=== PATIENT | male | born 2000 | race Caucasian/White ===

== ENCOUNTER → 2020-09-11 | Outpatient (CLI) | payer BC, SELFPAY ==
[2020-09-11 20:02] LABS: Internal QC Validated? YES +Cl - CLEAR BKGD; Monotest POSITIVE (Negative)
== END | disposition home or self-care (01) ==
PROVIDERS: Visit Provider Nurse Practitioner Family
DX: J02.9 Acute pharyngitis, unspecified (principal)
CPT/HCPCS: 86308

== ENCOUNTER 2021-02-27 10:38 | Outpatient (RCR) | payer BC, SELFPAY | END 2021-04-03 23:59 | LOC: IMMUN 10:38 | PROVIDERS: Visit Provider Family Medicine | DX: Z23 Encounter for immunization (principal) | CPT/HCPCS: 0001A; 0002A; 91300 ==

== ENCOUNTER 2023-01-17 15:20 | Emergency (ER) | payer BC, SELFPAY ==
[2023-01-17 15:20] VITALS: BP 138/67; PULSE 60; RESP 16; TEMP 36.3; O2SAT 99; BMI 27.0
--- NOTE | 2023-01-17 15:26 | CT_ITS ---
EXAM: CT ABDOMEN AND PELVIS WITHOUT INTRAVENOUS CONTRAST CLINICAL INDICATION: Kidney Stone TECHNIQUE: Helically acquired images were obtained of the abdomen and pelvis without intravenous contrast. This CT exam was performed using one or more of the following dose reduction techniques: automated exposure control, adjustment of the mA and/or kV according to patient size, and/or use of iterative reconstruction technique. This report was created using [employer] report generation technology. RADIATION DOSE: Total DLP: 377.06 mGy-cm. COMPARISON: None. FINDINGS: LOWER THORAX: The visualized lung bases are clear. No coronary artery calcification is visualized. No significant pericardial effusion. Urinary bladder is nearly empty. ABDOMEN: LIVER: Unremarkable. Homogeneous. GALLBLADDER AND BILE DUCTS: Unremarkable. No calcified gallstones. No gallbladder distention or wall edema. No intra- or extrahepatic biliary ductal dilation. PANCREAS: Unremarkable. No focal cystic mass. SPLEEN: Unremarkable. Normal size without focal cystic or solid mass. ADRENALS: Unremarkable. No nodules. KIDNEYS AND URETERS: The kidneys are normal in size and shape. There is minimal dilatation of the left intrarenal collecting system and left ureter as compared to the right. A punctate calcification measuring under 1 mm in diameter is seen within the distal left ureter in the region of the UVJ, best visualized on coronal image 73 of series 601 and parasagittal image 82 of series 602. No other renal or ureteral stones are identified. The right kidney is unremarkable STOMACH AND BOWEL: Unremarkable. No stomach or bowel distention. No focal inflammatory change. PELVIS: APPENDIX: Normal. No evidence of acute appendicitis. BLADDER: Nearly empty. REPRODUCTIVE: Unremarkable as visualized. No mass. ABDOMEN and PELVIS: INTRAPERITONEAL SPACE: Unremarkable. No ascites or other fluid collection. No free air. BONES/JOINTS: Unremarkable. No suspicious lytic or blastic abnormality. SOFT TISSUES: Unremarkable. No discrete abdominal or pelvic wall hernia. VASCULATURE: Normal caliber abdominal aorta. LYMPH NODES: Unremarkable. No enlarged lymph nodes. CT/Abdomen/Pelvis without Cont IMPRESSION: Minimal left hydronephrosis and hydroureter due to a punctate stone within the distal ureter at the UVJ. Electronically Signed: Ilia Camacho MD at 16:53 EDT ,
--- NOTE | 2023-01-17 15:26 | EX.ED.DYSGE1 ---
HPI History of Present Illness Chief Complaint: Flank Pain Detail of Chief Complaint: Left flank pain Informant: patient Onset/Context/Timing Onset: Today Context: Sudden Onset Current Severity: Moderate Maximum Severity: Severe Narrative Narrative: Patient presents secondary to left flank pain. He states he was sitting at his desk after work when he developed sudden pain in his left mid back muscles. Started wrapping around his abdomen. He states he feels the urge to urinate but cannot go. He got sweaty and lightheaded and had dry heaves. He states he felt well this morning. He denies any personal or family history of kidney stones. PFSH PFSH Medical History no medical history no medical history Home Medications hydrocodone-acetaminophen 5-325mg 5mg-325mg 1 tab PO Q6H PRN PRN Pain 3 days #10 TABLETS 01/17/23 [Rx Last Taken Unknown] ibuprofen 600 mg tablet 600 mg PO Q6H PRN PRN pain #20 TABLETS 01/17/23 [Rx Last Taken Unknown] ondansetron 4 mg disintegrating tablet 4 mg PO Q8H PRN PRN Nausea #10 tabs 01/17/23 [Rx Last Taken Unknown] Allergy/AdvReac Type Severity Reaction Status Date / Time Sulfa (Sulfonamide Allergy Other Verified 01/17/23 15:22 Antibiotics) Social History Smoking Status: Never smoker ROS ROS ED Constitutional Constitutional ED: Denies chills or fever(s) Eyes Eyes: Denies change in vision or discharge from eye(s) ENT ENT ED: Denies discharge from eye(s), rhinorrhea or sore throat Cardiovascular Cardiovascular: Denies chest pain or palpitations Respiratory/Chest Respiratory/Chest: Denies cough or dyspnea Gastrointestinal Gastrointestinal: Reports abdominal pain and nausea; Denies diarrhea or vomiting Genitourinary Genitourinary ED: Reports difficulty urinating; Denies dysuria Musculoskeletal Musculoskeletal: Reports back pain; Denies extremity pain Integumentary Denies Abrasions or rash Neurologic Neurologic: Denies headache(s) or weakness Psychiatric Psychiatric: Denies anxiety or depression Allergic/Immunologic Allergic/Immunologic ED: Denies lip swelling or urticaria EXAM Physical Exam Const Vital Signs: 01/17/23 15:20 Temperature 97.4 F L Temperature Source Temporal Pulse Rate 60 Respiratory Rate 16 Blood Pressure 138/67 H Blood Pressure Mean 90 Pulse Ox 99 Oxygen Delivery Method Room Air Positive well nourished and well developed General Appearance ED: well developed HEENT Reports normocephalic and head/scalp atraumatic Eyes PERRL and EOMs intact bilaterally Neck supple Chest Wall inspection of chest normal and palpation of chest normal Resp normal respiratory effort and clear to auscultation bilaterally Cardio regular rate and regular rhythm GI non-tender Auscultation: hypoactive bowel sounds Palpation: soft Extremity normal to inspection Neuro oriented x3 and no sensory deficits noted Sensorium / Orientation: alert Motor Exam: strength 5/5 throughout Psych mental status grossly normal Skin no rashes or lesions noted MDM MDM MDM Narrative Medical decision making narrative: IV line established. Patient given morphine, Toradol, Zofran, IV fluids. Lab work obtained along with urinalysis to evaluate for electrolyte abnormality or urinary infection. CT flank obtained given suspicion of kidney stone. Lab Data Attestation: I reviewed the patient's lab results. Labs: Laboratory Results - last 24 hr 01/17/23 01/17/23 01/17/23 15:30 15:30 16:48 WBC 6.6 RBC 4.85 Hgb 15.6 Hct 43.7 MCV 90.1 MCH 32.2 H MCHC 35.7 RDW Std Deviation 38.7 RDW Coeff of [place] 11.9 Plt Count 254 MPV 9.8 Immature Gran % (Auto) 0.800 Neut % (Auto) 44.4 L Lymph % (Auto) 40.7 [place] % (Auto) 11.0 H Eos % (Auto) 2.3 Baso % (Auto) 0.8 Absolute Neuts (auto) 2.9 Absolute Lymphs (auto) 2.69 Nucleated RBC % 0 Differential Comment SCANNED Sodium 140 Potassium 3.3 L Chloride 105 Carbon Dioxide 27.0 Anion Gap 8 BUN 18 Creatinine 1.36 H Estim Creat Clear Calc 94.65 Est GFR (MDRD) Af Amer 82 Est GFR (MDRD) Non-Af 68 BUN/Creatinine Ratio 13.2 Glucose 107 H Calcium 9.4 Urine Color Yellow Urine Clarity Sl. Cloudy Urine pH 6.5 Ur Specific [place] 1.020 Urine Protein 30 H Urine Glucose (UA) Normal Urine Ketones 5 H Urine Occult Blood 25 H Urine Nitrite Negative Urine Bilirubin Negative Urine Urobilinogen 1 H Ur Leukocyte Esterase 25 H Urine RBC 0-5 SEEN Urine WBC 0-5 SEEN Ur Squamous Epith Cells 0 SEEN Urine Bacteria 0 SEEN Urine Mucus 0 SEEN Radiography Diagnostic Testing: Clinical Impression(s) from Imaging Studies Abdomen/Pelvis CT 01/17/23 15:26 IMPRESSION: Minimal left hydronephrosis and hydroureter due to a punctate stone within the distal ureter at the UVJ. Electronically Signed: Ilia Camacho MD at 16:53 EDT , Treatment and Re-Evaluation :: CBC unremarkable. Chemistry studies reveal a slightly low potassium at 3.3 and a creatinine of 1.36. I have no prior values to compare to. Urinalysis reveals 0-5 RBCs and 0-5 white cells. Only [address] flank reveals a punctate stone at the left UVJ with minimal hydronephrosis. On repeat evaluation patient's pain is significantly improved. Test results are discussed with him and significant other at bedside. We will treat him with analgesics and antiemetics. He will be referred to urology as needed. Discharge Plan Triage Chief Complaint: Flank Pain ED Provider: Martina Kumari Dx/Rx/DC Orders Clinical Impression: Kidney stone Instructions: ED Kidney Stone w/ Colic Prescriptions: New ibuprofen 600 mg tablet 600 mg PO Q6H PRN PRN (Reason: pain) Qty: 20 0RF hydrocodone-acetaminophen 5-325 mg tablet 1 tab PO Q6H PRN PRN (Reason: Pain) 3 Days Qty: 10 0RF ondansetron 4 mg tablet,disintegrating 4 mg PO Q8H PRN PRN (Reason: Nausea) Qty: 10 0RF Primary Care Provider: Care Physician,No Primary Referrals: Chandana Alvarado MD [Med Staff - Active Staff] - As Needed NOT,DEFINED [Non-Staff] - Disposition Disposition: Home, Self Care
[2023-01-17] MEDS: Morphine 4 MG/ML Syringe IV (15:33)
[2023-01-17] MEDS: Ketorolac 30 MG/ML Syringe IV (15:33)
[2023-01-17] MEDS: Ondansetron 4 MG/2 ML Vial IV (15:33)
[2023-01-17] MEDS: 0.9% Normal Saline 1,000 ML 250 ML IV (15:37)
[2023-01-17 16:01] LABS: Anion Gap 8 (5-15); BUN 18 mg/dL (7-18); BUN/Creat Ratio 13.2 RATIO (10-20); Calcium,Total 9.4 mg/dL (8.5-10.1); Chloride 105 mmol/L (98-107); Creatinine, Serum 1.36 mg/dL (0.70-1.30); EST Glomerular Filtration Rate 68 mL/min (>60); Est Glom Filt Rate - Afr Amer 82 mL/min (>60); Estimated Creatinine Clearance 94.65 ml/min; Glucose 107 mg/dL (74-106); Potassium 3.3 mmol/L (3.5-5.1); Sodium Level 140 mmol/L (136-145)
[2023-01-17 16:02] LABS: Absolute Lymphocyte Count 2.69 X10^3/uL (0.83-4.51); Absolute Neutrophil Count 2.9 X10^3/uL (2.0-7.7); Basophil# 0.05 X10^3/uL; Basophil% 0.8 % (0-1); Eosinophil# 0.15 X10^3/uL; Eosinophils% 2.3 % (0-5); Hematocrit 43.7 % (40-54); Hemoglobin 15.6 g/dL (13.0-16.5); Lymphocyte # 2.69 X10^3/ul (0.83-4.51); Lymphocyte % 40.7 % (19-41); Mean Corp Hgb Conc 35.7 g/dL (32-36); Mean Corpuscular Hgb 32.2 pg (27.0-32.0); Mean Corpuscular Volume 90.1 fL (80-94); Mean Platelet Vol. 9.8 fl (6.2-12.0); Monocyte# 0.73 X10^3/uL; NRBC Flagged by Analyzer 0 % (0-5); Neutrophil # 2.94 X10^3/uL (2.7-7.7); Neutrophil % 44.4 % (47-70); POSITIVE MORPHOLOGY YES; Platelet Count 254 K/mm3 (150-450); RBC Distribution Width CV 11.9 % (11.6-14.6); RBC Distribution Width SD 38.7 fl (35.1-43.9); Red Blood Count 4.85 M/mm3 (4.6-6.2); White Blood Count 6.6 K/mm3 (4.4-11.0)
[2023-01-17 16:04] LABS: Differential Indicated SCAN CRITERIA MET
[2023-01-17 16:39] LABS: Differential Comment SCANNED
[2023-01-17 16:55] LABS: Bacteria 0 SEEN /hpf (None Seen); Color, Urine Yellow (Yellow); Glucose, Dipstick Normal (Normal); Ketone-Dipstick 5 mg/dl (Negative); Leukocyte Esterase-Dipstick 25 /ul (Negative); Mucous, Urine 0 SEEN /hpf (<or=2+); Nitrite-Dipstick Negative (Negative); Occult Blood-Urine 25 /ul (Negative); Protein-Dipstick 30 mg/dl (Negative); Squamous Epithelial Cells - UA 0 SEEN /hpf (0-5); Urine Bilirubin Dipstick Negative (Negative); Urine Clarity Sl. Cloudy (Clear); Urine Urobilinogen 1 mg/dl (Normal); Urine pH 6.5 (5.0 - 8.0)
[2023-01-17 17:01] LABS: Red Blood Cells-Urine 0-5 SEEN /hpf (0-5); White Blood Cells 0-5 SEEN /hpf (0-5)
[2023-01-17 17:20] VITALS: BP 127/86; PULSE 71; RESP 16; O2SAT 98
== END 2023-01-17 17:21 | disposition home or self-care (01) ==
PROVIDERS: Emergency Provider Emergency Medicine; Visit Provider Emergency Medicine
DX: N13.2 Hydronephrosis with renal and ureteral calculous obstruction (principal)
CPT/HCPCS: 74176; 80048; 81001; 85025; 96361; 96374; 96375; 99283; J7030; J2405